=== PATIENT | male | born 1955 | race Caucasian/White ===

== ENCOUNTER 2023-09-23 09:36 | Outpatient (CLI) | payer MEDICARE ==
[2023-09-23] MEDS ORDERED: Magnevist 469MG/ML 20 ML VIAL ONE (10:27)
== END 2023-09-23 09:37 | disposition home or self-care (01) ==
LOC: CSHMRI 09:36
PROVIDERS: ATTEND Internal Medicine Hematology & Oncology
DX: C61 Malignant neoplasm of prostate (principal); Z90.79 Acquired absence of other genital organ(s); R97.21 Rising PSA following treatment for malignant neoplasm of prostate; R93.89 Abnormal findings on diagnostic imaging of other specified body structures
CPT/HCPCS: 72197